=== PATIENT | male | born 1965 | race Caucasian/White ===

== ENCOUNTER 2024-02-13 08:59 | Day surgery (SDC) | payer OTHER ==
[~2024-02-13 08:59] MED LIST: Propofol 200 MG/20 ML SDV ONE
[2024-02-13] MEDS ORDERED: Sodium Chloride 0.9% 10 ML Syringe FLUSH PRN (09:15)
[2024-02-13] MEDS: Lactated Ringers 1,000 ML IV SCH (09:51)
[2024-02-13] MEDS ORDERED: Propofol 200 MG/20 ML SDV ONE (10:17)
[2024-02-13] MEDS ORDERED: Lidocaine 2% 5 ML SDV ONE (10:25)
[2024-02-13 11:49] VITALS: BP 157/72; PULSE 60
== END 2024-02-13 11:34 | disposition home or self-care (01) ==
LOC: LL.SDS 08:59
PROVIDERS: ATTEND Surgery
DX: K31.819 Angiodysplasia of stomach and duodenum without bleeding (principal); I10 Essential (primary) hypertension; D61.818 Other pancytopenia; E78.00 Pure hypercholesterolemia, unspecified; Z87.891 Personal history of nicotine dependence; Z79.899 Other long term (current) drug therapy
CPT/HCPCS: 43239; 45380; J2704; J7120; 00813; J3490